=== PATIENT | male | born 1960 | race Caucasian/White ===

== ENCOUNTER → 2016-10-04 | Outpatient (CLI) | payer OTHER ==
[~2016-10-04] MED LIST: CYSTO CONRAY II 250 ML VIAL UR ONE; DOCU100C8 PO; OXYC-302 PO; hydrochlorothiazide PO; lisinopril PO
== END | disposition home or self-care (01) ==
LOC: RAD 08:07
PROVIDERS: ATTEND Urology
DX: C61 Malignant neoplasm of prostate (principal)
CPT/HCPCS: 74430; Q9958